=== PATIENT | female | born 1985 | race Caucasian/White ===

== ENCOUNTER 2021-04-18 20:59 | Emergency (ER) | payer OTHER ==
[~2021-04-18] VITALS: Ht 167.6 cm; Wt 73.0 kg
[2021-04-18 22:16] LABS: BASOPHILS % 0.7 % (0.0-2.0); EOSINOPHILS % 1.2 % (0.0-5.0); HEMATOCRIT. 36.2 % (36.0-48.0); HEMOGLOBIN. 12.1 g/dL (12.0-16.0); LYMPHOCYTES % 31.1 % (20.0-50.0); MEAN CORPUSCULAR HEMOGLOBIN 28.2 pg (28.0-32.0); MEAN CORPUSCULAR VOLUME 84.5 fL (81.0-99.0); MEAN PLATELET VOLUME 8.3 fl (7.4-10.4); MONOCYTES % 5.3 % (2.0-8.0); NEUTROPHILS % 61.7 % (40.0-76.0); PLATELET 259 x1000/uL (130-400); RED BLOOD CELL COUNT 4.29 mill/uL (4.2-5.4); RED CELL DISTRIBUTION WIDTH 14.8 % (11.6-14.6)
[2021-04-18 22:17] LABS: CHLORIDE 104 mEq/L (98-107)
[2021-04-18 22:27] LABS: B-HCG QUANTITATIVE < 1 mIU/mL (<3)
[2021-04-18] MEDS ORDERED: FENTANYL CITRATE/PF 50MCG/ML 2ML VIAL IV ONE (23:15)
[2021-04-19] MEDS ORDERED: KETOROLAC 30MG/ML VIAL IV ONE
[2021-04-19 01:11] VITALS: BP 103/60
[2021-04-19] MEDS ORDERED: CYCL5TAB MT (01:39)
== END 2021-04-19 02:26 | disposition home or self-care (01) ==
LOC: ER 20:59
DX: S86.811A Strain of other muscle(s) and tendon(s) at lower leg level, right leg, initial encounter (principal); S46.811A Strain of other muscles, fascia and tendons at shoulder and upper arm level, right arm, initial encounter; R51.9 Headache, unspecified; M79.631 Pain in right forearm; S76.011A Strain of muscle, fascia and tendon of right hip, initial encounter; M54.9 Dorsalgia, unspecified; R10.819 Abdominal tenderness, unspecified site; Z32.02 Encounter for pregnancy test, result negative; E11.65 Type 2 diabetes mellitus with hyperglycemia; V49.59XA Passenger injured in collision with other motor vehicles in traffic accident, initial encounter; Y93.89 Activity, other specified; Y92.488 Other paved roadways as the place of occurrence of the external cause
CPT/HCPCS: 36415; 70450; 71045; 73030; 73060; 73090; 76856; 80053; 83690; 84702; 85025; 86850; 86900; 86901; 96374; 99285; J1885; J3010; Z7610; 96375

== ENCOUNTER 2021-09-14 14:04 | Inpatient (IN) | payer MEDICAID, OTHER ==
[~2021-09-14] VITALS: Ht 160 cm; Wt 65.8 kg
[~2021-09-14 14:04] MED LIST: CYCL5TAB MT
[2021-09-14] MEDS ORDERED: ACETAMINOPHEN 325MG TABLET PO ONE (15:00)
[2021-09-14 15:39] LABS: HEMATOCRIT. 38.5 % (36.0-48.0); HEMOGLOBIN. 13.1 g/dL (12.0-16.0); MEAN CORPUSCULAR HEMOGLOBIN 29.2 pg (28.0-32.0); MEAN CORPUSCULAR VOLUME 85.7 fL (81.0-99.0); MEAN PLATELET VOLUME 8.8 fl (7.4-10.4); PLATELET 245 x1000/uL (130-400); RED BLOOD CELL COUNT 4.49 mill/uL (4.2-5.4); RED CELL DISTRIBUTION WIDTH 14.8 % (11.6-14.6)
[2021-09-14 16:08] LABS: CHLORIDE 95 mEq/L (98-107)
[2021-09-14 16:52] LABS: PLATELET ESTIMATE NORMAL
[2021-09-14] MEDS ORDERED: KETOROLAC 30MG/ML VIAL IV STA (22:24)
[2021-09-14] MEDS ORDERED: ONDANSETRON HCL 4MG/2ML INJ IV STA (22:24)
[2021-09-14] MEDS ORDERED: ACETAMINOPHEN 325MG TABLET PO NR (22:29)
[2021-09-14] MEDS ORDERED: SODIUM CHLORIDE 0.9% 1,000 ML IV ONE (22:30)
[2021-09-15 00:52] LABS: CLARITY URINE CLOUDY (CLEAR); COLOR URINE YELLOW (YELLOW); KETONES URINE 4+ (NEGATIVE); LEUKOCYTE ESTERASE URINE 1+ (NEGATIVE); NITRITE URINE POSITIVE (NEGATIVE); OCCULT BLOOD URINE 1+ (NEGATIVE); PH URINE 5.5 (4.5-8.0); PROTEIN URINE 3+ (NEGATIVE); SPECIFIC GRAVITY URINE 1.029 (1.005-1.030)
[2021-09-15] MEDS ORDERED: INSULIN REGULAR (HUMULIN R) 300UNITS/3ML VIAL IV ONE ×2 (01:00→01:15)
[2021-09-15] MEDS ORDERED: CEFTRIAXONE 1 G PREMIX 50 ML IV ONE (01:30)
[2021-09-15] MEDS ORDERED: SODIUM CHLORIDE 0.9% 1,000 ML IV ONE ×2 (01:45→06:00)
[2021-09-15] MEDS ORDERED: ONDANSETRON HCL 4MG/2ML INJ IV ONE (06:00)
[2021-09-15] MEDS ORDERED: METOCLOPRAMIDE HCL 10MG/2ML VIAL IV PRN ×2 (06:45)
[2021-09-15] MEDS ORDERED: INSULIN LISPRO 100 UNITS/ML SUBCUT NR (06:45)
[2021-09-15 10:00] VITALS: BP_SYST 107; BP_DIAS 53; BP_DIAS 56
[2021-09-15] MEDS ORDERED: DEXTROSE 50% WATER 50ML SYRINGE IV PRN ×2 (10:15→11:15)
[2021-09-15] MEDS: SODIUM CHLORIDE 0.9% 1,000 ML IV SCH (10:15)
[2021-09-15] MEDS ORDERED: CEFTRIAXONE 1 G PREMIX 50 ML IV SCH (10:15)
[2021-09-15] MEDS ORDERED: GLIP10TA10 PO (10:32)
[2021-09-15] MEDS ORDERED: METF-873 PO (10:32)
[2021-09-15] MEDS: ACETAMINOPHEN 325MG TABLET PO PRN ×2 (10:37→17:17)
[2021-09-15] MEDS ORDERED: ONDANSETRON HCL 4MG/2ML INJ IV PRN (11:15)
[2021-09-15] MEDS ORDERED: MAGNESIUM/ALUMINUM HYDROXIDE/SIMETHICONE 30ML UDC PO PRN (11:15)
[2021-09-15] MEDS ORDERED: CLONIDINE 0.1MG TABLET PO PRN (11:15)
[2021-09-15 12:00] VITALS: BP 90/42
[2021-09-15] MEDS: ENOXAPARIN 40MG/0.4ML SYR SUBCUT SCH (12:00)
[2021-09-15] MEDS: BLOOD SUGAR DIAGNOSTIC STRIP TEST SCH ×3 (12:20→20:53)
[2021-09-15] MEDS ORDERED: BLOOD SUGAR DIAGNOSTIC STRIP TEST SCH (12:20)
[2021-09-15] MEDS: INSULIN LISPRO 100 UNITS/ML SUBCUT SCH ×3 (14:33→20:56)
[2021-09-15] MEDS ORDERED: NALOXONE HCL 0.4MG/ML VIAL IV PRN (15:00)
[2021-09-15 16:00] VITALS: BP 116/68
[2021-09-15 20:00] VITALS: BP 109/70
[2021-09-15] MEDS: CEFTRIAXONE 1,000 MG in DEXTROSE 5% WATER 50 ML IV SCH (20:53)
[2021-09-15] MEDS ORDERED: PNEUMOCOCCAL 23-VAL P-SAC VAC 0.5 ML IM ONE (21:30)
[2021-09-16] VITALS: BP 114/64
[2021-09-16] MEDS: ACETAMINOPHEN 325MG TABLET PO PRN (01:20)
[2021-09-16] MEDS: SODIUM CHLORIDE 0.9% 1,000 ML IV SCH ×2 (02:23→21:33)
[2021-09-16 04:00] VITALS: BP 94/56
[2021-09-16] MEDS: BLOOD SUGAR DIAGNOSTIC STRIP TEST SCH ×4 (06:00→21:33)
[2021-09-16] MEDS: OMEPRAZOLE 20MG CAPSULE EXTENDED RELEASE PO SCH (07:20)
[2021-09-16 08:00] VITALS: BP 97/55
[2021-09-16] MEDS: GLIPIZIDE 10MG TABLET PO SCH (08:33)
[2021-09-16] MEDS: INSULIN LISPRO 100 UNITS/ML SUBCUT SCH ×4 (08:34→21:37)
[2021-09-16] MEDS: ENOXAPARIN 40MG/0.4ML SYR SUBCUT SCH (09:00)
[2021-09-16 12:00] VITALS: BP 97/63
[2021-09-16 12:13] LABS: BASOPHILS % 0.7 % (0.0-2.0); EOSINOPHILS % 0.8 % (0.0-5.0); HEMATOCRIT. 32.6 % (36.0-48.0); LYMPHOCYTES % 11.1 % (20.0-50.0); MEAN CORPUSCULAR VOLUME 85.6 fL (81.0-99.0); MEAN PLATELET VOLUME 9.4 fl (7.4-10.4); MONOCYTES % 6.3 % (2.0-8.0); NEUTROPHILS % 81.1 % (40.0-76.0); PLATELET 192 x1000/uL (130-400); RED BLOOD CELL COUNT 3.81 mill/uL (4.2-5.4); RED CELL DISTRIBUTION WIDTH 14.3 % (11.6-14.6)
[2021-09-16 12:21] LABS: CHLORIDE 103 mEq/L (98-107)
[2021-09-16 12:40] LABS: HDL CHOLESTEROL 18 mg/dL (40-59); LDL CHOLESTEROL 102 mg/dL (5-100); PHOSPHORUS 1.6 mg/dL (2.5-4.9)
[2021-09-16] MEDS: HYDROCODONE/ACETAMINOPHEN 5/325MG TABLET PO PRN ×2 (14:22→21:31)
[2021-09-16 16:00] VITALS: BP 100/65
[2021-09-16] MEDS ORDERED: POTASSIUM PHOS,M-BASIC-D-BASIC 20 MMOL in DEXT 5% WATER 243.3333 ML IV NR (17:00)
[2021-09-16 20:00] VITALS: BP 112/71
[2021-09-16] MEDS ORDERED: ATORVASTATIN CALCIUM 20MG TABLET PO SCH (21:00)
[2021-09-16] MEDS: CEFTRIAXONE 1,000 MG in DEXTROSE 5% WATER 50 ML IV SCH (21:34)
[2021-09-17] VITALS: BP 104/69
[2021-09-17 00:56] LABS: *AMPHETAMINES SCREEN URINE NEGATIVE (NEGATIVE); *BARBITURATES SCREEN URINE NEGATIVE (NEGATIVE); *BENZODIAZEPINES SCREEN URINE NEGATIVE (NEGATIVE); *COCAINE SCREEN URINE NEGATIVE (NEGATIVE); METHADONE URINE SCREEN NEGATIVE (NEGATIVE); PHENCYCLIDINE URINE SCREEN NEGATIVE (NEGATIVE)
[2021-09-17 00:57] LABS: CANNABINOID URINE SCREEN PRESUMTIVE POSITIVE (NEGATIVE); OPIATES URINE SCREEN PRESUMTIVE POSITIVE (NEGATIVE)
[2021-09-17 04:00] VITALS: BP 98/56
[2021-09-17] MEDS: ACETAMINOPHEN 325MG TABLET PO PRN (05:43)
[2021-09-17] MEDS: GLIPIZIDE 10MG TABLET PO SCH (06:30)
[2021-09-17] MEDS: OMEPRAZOLE 20MG CAPSULE EXTENDED RELEASE PO SCH (06:31)
[2021-09-17] MEDS: BLOOD SUGAR DIAGNOSTIC STRIP TEST SCH ×2 (06:31→12:26)
[2021-09-17 06:41] LABS: HEMATOCRIT. 31.9 % (36.0-48.0); HEMOGLOBIN. 11.1 g/dL (12.0-16.0); MEAN CORPUSCULAR HEMOGLOBIN 29.1 pg (28.0-32.0); MEAN CORPUSCULAR VOLUME 84.1 fL (81.0-99.0); MEAN PLATELET VOLUME 9.3 fl (7.4-10.4); PLATELET 234 x1000/uL (130-400); RED BLOOD CELL COUNT 3.79 mill/uL (4.2-5.4); RED CELL DISTRIBUTION WIDTH 14.2 % (11.6-14.6)
[2021-09-17 07:34] LABS: CHLORIDE 102 mEq/L (98-107)
[2021-09-17 08:00] VITALS: BP 101/51
[2021-09-17] MEDS: INSULIN LISPRO 100 UNITS/ML SUBCUT SCH ×2 (09:13→13:18)
[2021-09-17] MEDS: ENOXAPARIN 40MG/0.4ML SYR SUBCUT SCH (09:14)
[2021-09-17] MEDS ORDERED: ATOR20TA PO (11:53)
[2021-09-17] MEDS ORDERED: LEVO250T43 MT (11:53)
[2021-09-17 12:00] VITALS: BP 98/56
[2021-09-17] MEDS ORDERED: POTASSIUM CHLORIDE 20MEQ TABLET SR PO NR (12:00)
[2021-09-17] MEDS: SODIUM CHLORIDE 0.9% 1,000 ML IV SCH (12:26)
[2021-09-17 14:11] VITALS: BP 98/56
[2021-09-17 19:05] LABS: PLATELET ESTIMATE NORMAL
== END 2021-09-17 15:27 | disposition home or self-care (01) | DRG 720 ==
LOC: ER 14:04 → 6WST 09-15 05:46 → EDBEDREQSVC 09-15 06:40 → EDBEDREQTM 09-15 06:40 → ENRESERV 09-15 08:48
PROVIDERS: ADMIT Internal Medicine; ATTEND Internal Medicine
DX: A41.9 Sepsis, unspecified organism (principal); E44.0 Moderate protein-calorie malnutrition; E83.39 Other disorders of phosphorus metabolism; E11.65 Type 2 diabetes mellitus with hyperglycemia; D72.829 Elevated white blood cell count, unspecified; E87.6 Hypokalemia; N39.0 Urinary tract infection, site not specified; Z68.25 Body mass index [BMI] 25.0-25.9, adult; Z79.84 Long term (current) use of oral hypoglycemic drugs; Z20.822 Contact with and (suspected) exposure to COVID-19
CPT/HCPCS: 36415; 71045; 80048; 80053; 80061; 80076; 80305; 81003; 82010; 82962; 83036; 83735; 84100; 84443; 85025; 87077; 87186; 87426; 90732; 93005; 93970; 99285; J0696; J1650; J1815; J1885; J2405; J2765; J3490; J7030; J7060